=== PATIENT | male | born 1955 | race Caucasian/White ===

== ENCOUNTER 2016-06-18 11:41 | Emergency (ER) | payer OTHER ==
[2016-06-18 12:18] VITALS: BP 124/74; PULSE 86; RESP 18; TEMP 97.5
--- NOTE | 2016-06-18 12:52 | ED ---
General Adult HPI - General Chief complaint: Recheck/Abnormal Lab/Rx Stated complaint: hand pain Time Seen by Provider: 06/18/16 12:34 Source: patient, RN notes reviewed Mode of arrival: ambulatory Limitations: no limitations - History of Present Illness Initial comments: 61-year-old male presents to the emergency department with a chief complaint of bilateral wrist pain and carpal tunnel. Patient states he's had this for the past few months. Patient states he recently moved to the area he did used to live down in [place] doctor there who is giving him pain medication for this and trying to find him a follow-up with [facility] that he moved away and he is unable to get there anymore. Patient states her for about a week's worth of medication he states that he would like follow up 2 or so for further evaluation of the carpal tunnel. Patient states pain is fine at home is just when he works that he has increased pain. Patient states that his Achilles tendon uses the pain medication. Patient states he has received pain medication past but his eyes been from the pain center that he was referred to. Patient states that he was concerned because he does not have a doctor. He has to work tonight and does not believe he work without this medication helped him with the pain. Patient states there is no falls or injuries. Patient states went to his pain he just simply needs a medication refill.Patient denies any recent fever, chills, shortness of breath, chest pain, back pain, abdominal pain, nausea vomiting, numbness or tingling, dysuria or hematuria, constipation or diarrhea, headaches or visual changes, or any other current symptoms. - Related Data Previous Rx's Medication Instructions Recorded Gabapentin [Neurontin] 300 mg PO BID #20 capsule 06/18/16 Hydrocodone/Acetaminophen [[place] 1 tab PO BID PRN #20 tablet 06/18/16 7.5-325] Allergies Allergy/AdvReac Type Severity Reaction Status Date / Time No Known Allergies Allergy Verified 06/18/16 12:31 Review of Systems ROS Statement: Those systems with pertinent positive or pertinent negative responses have been documented in the HPI. ROS Other: All systems not noted in ROS Statement are negative. Past Medical History Additional Past Medical History / Comment(s): carpal tunnel History of Any Multi-Drug Resistant Organisms: None Reported Past Surgical History: No Surgical Hx Reported Past Psychological History: No Psychological Hx Reported Smoking Status: Current every day smoker Past Alcohol Use History: None Reported Past Drug Use History: None Reported General Exam Limitations: no limitations General appearance: alert, in no apparent distress Neck exam: Present: normal inspection. Absent: tenderness, meningismus, lymphadenopathy Respiratory exam: Present: normal lung sounds bilaterally. Absent: respiratory distress, wheezes, rales, rhonchi, stridor Cardiovascular Exam: Present: regular rate, normal rhythm, normal heart sounds. Absent: systolic murmur, diastolic murmur, rubs, gallop, clicks Extremities exam: Present: normal inspection, full ROM, normal capillary refill , other (Patient does have pain with with squeezing of the hands.). Absent: tenderness, pedal edema, joint swelling, calf tenderness Back exam: Present: normal inspection Neurological exam: Present: alert, oriented X3, CN II-XII intact. Absent: motor sensory deficit Psychiatric exam: Present: normal affect, normal mood Skin exam: Present: warm, dry, intact, normal color. Absent: rash Course Vital Signs 06/18/16 12:14 Temperature 97.5 F L Pulse Rate 86 Respiratory 18 Rate Blood Pressure 124/74 O2 Sat by Pulse 98 Oximetry Medical Decision Making - Medical Decision Making 61-year-old male presents for refill of pain medication. At this time. Progress from the tenderness showed treated patient's story. Patient has not been seen here before. This time we discussed with a small dose of his pain medication. We will give him orthopedic follow-up and we discussed using splints as prescribed. We discussed return parameters and follow-up. Patient is given the plan all questions have been answered. This time the patient will be discharged home. Disposition Clinical Impression: Bilateral carpal tunnel syndrome Disposition: HOME SELF-CARE Condition: Stable Instructions: Paresthesia (ED) Additional Instructions: Please use medication as discussed. Please follow up with family doctor if symptoms have not improved over the next two days. Please return to the emergency room if your symptoms increase or worsen or for any other concerns. Prescriptions: Gabapentin [Neurontin] 300 mg PO BID #20 capsule Hydrocodone/Acetaminophen [[place] 7.5-325] 1 tab PO BID PRN #20 tablet PRN Reason: Pain Referrals: Tracy Trujillo MD [STAFF PHYSICIAN] - 1-2 days Arben Chew MD [STAFF PHYSICIAN] - 1-2 days Time of Disposition: 13:13
== END 2016-06-18 13:20 | disposition home or self-care (01) ==
LOC: EC 11:41
DX: G56.03 Carpal tunnel syndrome, bilateral upper limbs (principal); Z76.0 Encounter for issue of repeat prescription; F17.200 Nicotine dependence, unspecified, uncomplicated
CPT/HCPCS: 99283

== ENCOUNTER 2016-06-27 10:54 | Emergency (ER) | payer OTHER ==
--- NOTE | 2016-06-27 12:13 | ED ---
General Adult HPI - General Chief complaint: Recheck/Abnormal Lab/Rx Stated complaint: med refill Time Seen by Provider: 06/27/16 12:03 Source: patient, RN notes reviewed, old records reviewed Mode of arrival: ambulatory Limitations: no limitations - History of Present Illness Initial comments: This is a 61-year-old male today who is presenting for evaluation of chronic pain. Patient has chronic Pain. Patient was seen here about a week and half to 2 weeks ago for evaluation of same complaint. Patient states the meantime is feeling better, his of May worse with both parents. Patient has known carpal tunnel in both hands, he admits to having family doctor appointment next month - Related Data Previous Rx's Medication Instructions Recorded Gabapentin [Neurontin] 300 mg PO BID #20 capsule 06/18/16 Hydrocodone/Acetaminophen [[place] 1 tab PO BID PRN #20 tablet 06/18/16 7.5-325] HYDROcodone/APAP 5-325MG [[place] 1 tab PO Q6HR PRN #30 tab 06/27/16 5-325] Allergies Allergy/AdvReac Type Severity Reaction Status Date / Time No Known Allergies Allergy Verified 06/27/16 12:07 Review of Systems ROS Statement: Those systems with pertinent positive or pertinent negative responses have been documented in the HPI. ROS Other: All systems not noted in ROS Statement are negative. Past Medical History Additional Past Medical History / Comment(s): carpal tunnel History of Any Multi-Drug Resistant Organisms: None Reported Past Surgical History: No Surgical Hx Reported Past Psychological History: No Psychological Hx Reported Smoking Status: Current every day smoker Past Alcohol Use History: None Reported Past Drug Use History: None Reported General Exam Limitations: no limitations General appearance: alert, in no apparent distress Head exam: Present: atraumatic, normocephalic, normal inspection Eye exam: Present: normal appearance, PERRL, EOMI. Absent: scleral icterus, conjunctival injection, periorbital swelling ENT exam: Present: normal exam, mucous membranes moist Neck exam: Present: normal inspection. Absent: tenderness, meningismus, lymphadenopathy Respiratory exam: Present: normal lung sounds bilaterally. Absent: respiratory distress, wheezes, rales, rhonchi, stridor Cardiovascular Exam: Present: regular rate, normal rhythm, normal heart sounds. Absent: systolic murmur, diastolic murmur, rubs, gallop, clicks GI/Abdominal exam: Present: soft, normal bowel sounds. Absent: distended, tenderness, guarding, rebound, rigid Extremities exam: Present: normal inspection, full ROM, normal capillary refill. Absent: tenderness, pedal edema, joint swelling, calf tenderness Back exam: Present: normal inspection Neurological exam: Present: alert, oriented X3, CN II-XII intact Psychiatric exam: Present: normal affect, normal mood Skin exam: Present: warm, dry, intact, normal color. Absent: rash Course Vital Signs 06/27/16 10:59 Temperature 97.8 F Pulse Rate 82 Respiratory 20 Rate Blood Pressure 146/81 O2 Sat by Pulse 96 Oximetry - Reevaluation(s) Reevaluation #1: 06/27/16 12:12 Patient's medical records thoroughly reviewed including past medication refills Medical Decision Making - Medical Decision Making 61 Tr acute on chronic pain, carpal tunnel, patient's medication is refilling can be discharged home Disposition Clinical Impression: Encounter for medication refill, Bilateral carpal tunnel syndrome Disposition: HOME SELF-CARE Condition: Good Instructions: Paresthesia (ED) Referrals: None,Stated [Primary Care Provider] - 1-2 days
[2016-06-27 12:32] VITALS: BP 131/92; PULSE 95; RESP 18; TEMP 96.9
== END 2016-06-27 12:31 | disposition home or self-care (01) ==
LOC: EC 10:54
DX: G56.03 Carpal tunnel syndrome, bilateral upper limbs (principal); Z76.0 Encounter for issue of repeat prescription; F17.200 Nicotine dependence, unspecified, uncomplicated
CPT/HCPCS: 99282

== ENCOUNTER 2016-07-12 10:09 | Emergency (ER) | payer OTHER ==
[2016-07-12 10:22] VITALS: BP 120/83; PULSE 83; RESP 20; TEMP 98
--- NOTE | 2016-07-12 11:09 | ED ---
General Adult HPI - General Chief complaint: Recheck/Abnormal Lab/Rx Stated complaint: med refill Time Seen by Provider: 07/12/16 10:37 Source: patient, RN notes reviewed, old records reviewed Mode of arrival: ambulatory Limitations: no limitations - History of Present Illness Initial comments: This is a 61-year-old male the ER for evaluation of medicine refill, reevaluation of carpal tunnel. Patient has no other medical history, patient states he has orthopedic follow-up on the of this month. Otherwise patient has had difficulty getting in a pain clinic. Patient denies any other complaints, no other symptoms. No symptoms of active withdrawal. - Related Data Previous Rx's Medication Instructions Recorded Gabapentin [Neurontin] 300 mg PO BID #20 capsule 06/18/16 HYDROcodone/APAP 7.5-325MG [[place] 1 tab PO BID #30 tab 07/12/16 7.5-325] Hydrocodone/Acetaminophen [[place] 1 tab PO BID PRN #20 tablet 07/12/16 7.5-325] Allergies Allergy/AdvReac Type Severity Reaction Status Date / Time No Known Allergies Allergy Verified 07/12/16 10:47 Review of Systems ROS Statement: Those systems with pertinent positive or pertinent negative responses have been documented in the HPI. ROS Other: All systems not noted in ROS Statement are negative. Past Medical History Additional Past Medical History / Comment(s): carpal tunnel History of Any Multi-Drug Resistant Organisms: None Reported Past Surgical History: No Surgical Hx Reported Past Psychological History: No Psychological Hx Reported Smoking Status: Current every day smoker Past Alcohol Use History: None Reported Past Drug Use History: None Reported General Exam Limitations: no limitations General appearance: alert, in no apparent distress Head exam: Present: atraumatic, normocephalic, normal inspection Eye exam: Present: normal appearance, PERRL, EOMI. Absent: scleral icterus, conjunctival injection, periorbital swelling ENT exam: Present: normal exam, mucous membranes moist Neck exam: Present: normal inspection. Absent: tenderness, meningismus, lymphadenopathy Respiratory exam: Present: normal lung sounds bilaterally. Absent: respiratory distress, wheezes, rales, rhonchi, stridor Cardiovascular Exam: Present: regular rate, normal rhythm, normal heart sounds. Absent: systolic murmur, diastolic murmur, rubs, gallop, clicks GI/Abdominal exam: Present: soft, normal bowel sounds. Absent: distended, tenderness, guarding, rebound, rigid Extremities exam: Present: normal inspection, full ROM, normal capillary refill. Absent: tenderness, pedal edema, joint swelling, calf tenderness Back exam: Present: normal inspection Neurological exam: Present: alert, oriented X3, CN II-XII intact Psychiatric exam: Present: normal affect, normal mood Skin exam: Present: warm, dry, intact, normal color. Absent: rash Course Vital Signs 07/12/16 10:19 Temperature 98.0 F Pulse Rate 83 Respiratory 20 Rate Blood Pressure 120/83 O2 Sat by Pulse 99 Oximetry - Reevaluation(s) Reevaluation #1: 07/12/16 11:09 Patient's records are reviewed prior ER visits reviewed Medical Decision Making - Medical Decision Making 61 male here for evaluation of recurrent exacerbation of carpal tunnel complicated by medication refill. Patient's medications will be refilled to continue following up with orthopedics Disposition Clinical Impression: Bilateral carpal tunnel syndrome, Encounter for medication refill Disposition: HOME SELF-CARE Condition: Good Instructions: Medicine Refill (ED) Prescriptions: HYDROcodone/APAP 7.5-325MG [[place] 7.5-325] 1 tab PO BID #30 tab Hydrocodone/Acetaminophen [[place] 7.5-325] 1 tab PO BID PRN #20 tablet PRN Reason: Pain Referrals: None,Stated [Primary Care Provider] - 1-2 days
== END 2016-07-12 11:20 | disposition home or self-care (01) ==
LOC: EC 10:09
DX: G56.03 Carpal tunnel syndrome, bilateral upper limbs (principal); Z76.0 Encounter for issue of repeat prescription; F17.200 Nicotine dependence, unspecified, uncomplicated; Z79.899 Other long term (current) drug therapy
CPT/HCPCS: 99282

== ENCOUNTER 2016-08-17 10:56 | Emergency (ER) | payer OTHER ==
[2016-08-17 11:00] VITALS: BP 111/64; PULSE 86; RESP 16; TEMP 97
--- NOTE | 2016-08-17 11:19 | ED ---
Recheck HPI - General Chief Complaint: Recheck/Abnormal Lab/Rx Stated Complaint: med refill Time Seen by Provider: 08/17/16 11:04 Source: patient, RN notes reviewed Mode of arrival: ambulatory Limitations: no limitations - History of Present Illness Initial Comments: 61-year-old male presents to emergency department with a chief complaint of medication refill. Patient has ran out of his [place] Neurontin for carpal tunnel. Patient states he sees his doctor again on the when he moves away. Patient states that he simply needs refill. 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 Patient states that he has no other complaints at this time. Patient states is exactly like his typical pain. Patient denies any recent fever, chills, shortness of breath, chest pain, back pain, abdominal pain, nausea vomiting, numbness or tingling, dysuria or hematuria, constipation or diarrhea, headaches or visual changes, or any other current symptoms. - Related Data Previous Rx's Medication Instructions Recorded Gabapentin [Neurontin] 300 mg PO BID #20 capsule 08/17/16 HYDROcodone/APAP 7.5-325MG [[place] 1 tab PO BID #30 tab 08/17/16 7.5-325] Allergies Allergy/AdvReac Type Severity Reaction Status Date / Time No Known Allergies Allergy Verified 08/17/16 11:00 Review of Systems ROS Statement: Those systems with pertinent positive or pertinent negative responses have been documented in the HPI. ROS Other: All systems not noted in ROS Statement are negative. Past Medical History Additional Past Medical History / Comment(s): carpal tunnel History of Any Multi-Drug Resistant Organisms: None Reported Past Surgical History: No Surgical Hx Reported Past Psychological History: No Psychological Hx Reported Smoking Status: Current every day smoker Past Alcohol Use History: None Reported Past Drug Use History: None Reported General Exam - General Exam Comments Initial Comments: General: The patient is awake and alert, in no distress, and does not appear acutely ill. Neck: The neck is supple, there is no tenderness or JVD. Cardiovascular: There is a regular rate and rhythm. No murmur, rub or gallop is appreciated. Respiratory: Lungs are clear to auscultation, respirations are non-labored, breath sounds are equal. No wheezes, stridor, rales, or rhonchi. Musculoskeletal: Sensation intact with 2+ pulses Bilateral upper extremities range of motion of elbows and wrists and hands. Patient does have a positive Tinel sign bilaterally. Less than 2 capillary refill. Neurological: CN II-XII intact, There are no obvious motor or sensory deficits. Coordination appears grossly intact. Speech is normal. Skin: Skin is warm and dry and no rashes or lesions are noted. Psychiatric: Normal mood and affect. Limitations: no limitations Course Vital Signs 08/17/16 10:56 Temperature 97.0 F L Pulse Rate 86 Respiratory 16 Rate Blood Pressure 111/64 O2 Sat by Pulse 100 Oximetry Medical Decision Making - Medical Decision Making 61-year-old male presents for medication refill. This tender mass report was generated that does show that the patient has not received any narcotic medication besides previous visit here for a refill. This time we discussed we will refill his medications. We did discuss follow-up with his doctor and return parameters. All questions were answered. He will be discharged. Disposition Clinical Impression: Encounter for medication refill Disposition: HOME SELF-CARE Condition: Stable Instructions: Paresthesia (ED) Additional Instructions: Please use medication as discussed. Please follow up with family doctor if symptoms have not improved over the next two days. Please return to the emergency room if your symptoms increase or worsen or for any other concerns. Prescriptions: Gabapentin [Neurontin] 300 mg PO BID #20 capsule HYDROcodone/APAP 7.5-325MG [[place] 7.5-325] 1 tab PO BID #30 tab Referrals: None,Stated [Primary Care Provider] - 1-2 days Tracy Trujillo MD [STAFF PHYSICIAN] - 1-2 days Time of Disposition: 11:19
== END 2016-08-17 11:28 | disposition home or self-care (01) ==
LOC: EC 10:56
DX: Z76.0 Encounter for issue of repeat prescription (principal); G56.00 Carpal tunnel syndrome, unspecified upper limb; F17.200 Nicotine dependence, unspecified, uncomplicated
CPT/HCPCS: 99281